=== PATIENT | female | born 1955 | race Caucasian/White ===

== ENCOUNTER 2022-07-24 11:52 | Emergency (ER) | payer OTHER ==
[~2022-07-24] VITALS: Ht 167.6 cm; Wt 84.8 kg
[2022-07-24] MEDS ORDERED: LOSARTAN POTAS100 MG PO (12:54)
[2022-07-24] MEDS ORDERED: KETO10TA2 PO (15:39)
[2022-07-24] MEDS ORDERED: ZOVIRAX800 MG PO (15:39)
== END 2022-07-24 15:45 | disposition home or self-care (01) ==
LOC: ER 11:52
DX: B02.9 Zoster without complications (principal); I10 Essential (primary) hypertension